=== PATIENT | female | born 1980 | race Two or more races ===

== ENCOUNTER 2018-02-17 00:14 | Emergency (ER) | payer OTHER ==
[2018-02-17 00:48] VITALS: BP 127/71; PULSE 80; TEMP 98.2; BMI 44.5
--- NOTE | 2018-02-17 01:09 | PDOC ---
History of Present Illness - General Chief Complaint: Psychiatric Stated Complaint: INSOMNIA Time Seen by Provider: 02/17/18 00:26 - History of Present Illness Initial Comments: 02/17/18 01:05 37 years old past medical history significant for depression on venalaxafine and risperdal, presents to the emergency department with several week history of difficulty sleeping at night. Patient states that she is chronically depressed at times feels sad and tearful but that her symptoms have not acutely worsened over the last several weeks. She denies suicidal ideation or homicidal ideation. She states that she has difficulty sleeping at night and is very sleepy during the day. Sometimes now falling asleep during the day. No medical complaints at this time no fever chills chest pain shortness of breath nausea vomiting or diarrhea Past History - Past Medical History Allergies/Adverse Reactions: Allergies Allergy/AdvReac Type Severity Reaction Status Date / Time No Known Allergies Allergy Verified 10/07/17 21:36 Home Medications: Ambulatory Orders Quetiapine Fumarate [Seroquel] 200 mg PO HS 10/07/17 Risperidone [Risperdal] 2 mg PO BID 10/07/17 Metformin HCl [Glucophage] 500 mg PO BID 02/17/18 COPD: No Diabetes: Yes Psychiatric Problems: Yes - Suicide/Smoking/Psychosocial Hx Smoking History: Never smoked Have you smoked in the past 12 months: No Hx Alcohol Use: No Drug/Substance Use Hx: No Substance Use Type: None Review of Systems - Review of Systems Comments:: 02/17/18 01:06 ROS: A complete review of 10 out of 10 review of systems is taken and is negative apart from what is previously mentioned below and in the HPI. *Physical Exam - Vital Signs Last Vital Signs Temp Pulse Resp BP Pulse Ox 98.2 F 80 18 127/71 99 02/17/18 00:15 02/17/18 00:15 02/17/18 00:15 02/17/18 00:15 02/17/18 00:15 - Physical Exam Comments: 02/17/18 01:07 Vitals: Triage Vital signs reviewed General Appearance: no acute distress, well nourished well developed, Head: Atraumatic, Neck: Supple;No Nucal rigidity Chest Wall: Nontender Cardiac: Regular rate and rhythym, no murmurs, no rubs, no gallops, Lungs: Clear to auscultation bilateral, good air movement bilaterally, Extremities: Full range of motion to all extremities, no cyanosis, clubbing, or edema Skin: Warm and dry, no rashes or lesions, no rash, no petechiael Psych: normal mood, normal affect Medical Decision Making - Medical Decision Making 02/17/18 01:08 Well-appearing no apparent distress with several week history of insomnia Suffers from depression but no acute or worrisome changes patient denies suicidality homicidality She has a psychiatrist she'll follow-up with her psychiatrist on Sunday. We have discussed at length trying to establish better sleeper teens waking up the same time each morning healthier diet no food of caffeinated beverages after 7 PM and satting a sleeper teens and going to bed at the same time each night. Findings, the need for follow-up and strict return instructions discussed with patient and mother. *DC/Admit/Observation/Transfer Diagnosis at time of Disposition: Insomnia Qualifiers: Insomnia type: unspecified Qualified Code(s): G47.00 - Insomnia, unspecified - Discharge Dispostion Disposition: HOME Condition at time of disposition: Stable Decision to Admit order: No - Referrals Referrals: [facility] [Provider Group] - Patient Instructions Printed Discharge Instructions: Creating a Healthy Sleep Routine Additional Instructions: Try to establish better sleep routines. Wakeup at the same time each day try to go to bed at the same time each night beverages in the evening. Make healthier food choices. Follow-up with your psychiatrist on Sunday. Return to ED for any concerns. - Post Discharge Activity
== END 2018-02-17 01:12 | disposition home or self-care (01) ==
LOC: FER 00:14
DX: G47.00 Insomnia, unspecified (principal); E11.9 Type 2 diabetes mellitus without complications; F99 Mental disorder, not otherwise specified
CPT/HCPCS: 99281-25